=== PATIENT | male | born 1950 | race Caucasian/White ===

== ENCOUNTER 2020-11-17 17:12 | Emergency (ER) | payer MEDICARE ==
[~2020-11-17] VITALS: Ht 177.8 cm; Wt 92.4 kg
[2020-11-17 17:14] VITALS: BP 132/52
--- NOTE | 2020-11-17 17:23 | NUR ---
EKG DONE IN TRIAGE.
--- NOTE | 2020-11-17 19:00 | NUR ---
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
--- NOTE | 2020-11-17 19:36 | NUR ---
covid swab collected and walked to lab, dc instructions explained to pt all questions addressed.
== END 2020-11-17 19:39 | disposition home or self-care (01) ==
LOC: ED 19:33
DX: U07.1 COVID-19 (principal); J06.9 Acute upper respiratory infection, unspecified; R94.31 Abnormal electrocardiogram [ECG] [EKG]
CPT/HCPCS: 93005; 99284; U0003; U0005